=== PATIENT | female | born 1990 | race Caucasian/White ===

== ENCOUNTER 2018-07-13 14:53 | Inpatient (IN) | payer SELFPAY ==
[~2018-07-13] VITALS: Ht 157.5 cm; Wt 55.7 kg
--- NOTE | 2018-07-13 15:21 | NUR ---
First contact with pt. ED MD at bedside. Pt tearful stating, "I have been having chest pain for weeks. I went to the hospital and they didn't know what was wrong. Ativan helped it feel better there. Every three seconds it feels like a stabbing and pressure pain in my left chest, and my left arm hurts and I can't even lift my arm up. It hurts for 5 to 6 hours at a time. I was at [facility] last night, I was there last . I tried to smoke pot a couple times this week because I thought it was anxiety, but it didn't help. I have had a diagnosis of anxiety before and clonopin helped in the past when I was on it." Pt denies n/v/d, trauma, blood in urine or stool, sob, increase in frequency. Pt connected to all monitors. All safety measures in place. Call light within reach. Pt AOX4, tachy caardic in the 120-130's, RR of 19.
[2018-07-13] MEDS ORDERED: MAALOX/HYOSCYAMINE/LIDOCAINE 45 ML BTL ONE (15:28)
[2018-07-13] MEDS ORDERED: DIME25TA PO (15:33)
[2018-07-13] MEDS ORDERED: ONDANSETRON 2MG/ML, 2ML ONE (15:45)
[2018-07-13] MEDS ORDERED: FAMOTIDINE 20 MG/2 ML ONE (15:45)
--- NOTE | 2018-07-13 15:55 | NUR ---
Pt provided medication per EMAR. Pt tearful and guarding epigastric and left chest. Pt connected to all monitors and PIV fluids infusing per EMAR. All safety measures in place. Pt aware of need of urine sample. Pt states, "I need to calm [place] first before I can do that."
[2018-07-13 15:57] LABS: BASOPHILS # (AUTO) 0.07 x10^3/uL (0-0.1); BASOPHILS % (AUTO) 1 % (0-1); EOSINOPHILS # (AUTO) 0.15 x10^3/uL (0-0.4); EOSINOPHILS % (AUTO) 1 % (1-7); LYMPHOCYTES # (AUTO) 3.37 x10^3/uL (1-3.4); LYMPHOCYTES % (AUTO) 32 % (22-44); MD NO; MEAN CORPUSCULAR HEMOGLOBIN 31.4 pg (27.0-34.8); MEAN CORPUSCULAR HGB CONC 34.2 g/dL (32.4-35.8); MEAN CORPUSCULAR VOLUME 91.8 fL (80-100); MEAN PLATELET VOLUME 7.8 fL (7.4-10.4); MONOCYTES # (AUTO) 0.62 x10^3/uL (0.2-0.8); MONOCYTES % (AUTO) 6 % (2-9); NEUTROPHILS # (AUTO) 6.44 x10^3/uL (1.8-6.8); NEUTROPHILS % (AUTO) 61 % (42-75); PLATELET COUNT 325 x10^3/uL (130-400); RED BLOOD COUNT 4.96 x10^6/uL (3.82-5.3); RED CELL DISTRIBUTION WIDTH 12.2 % (9.6-15.2)
[2018-07-13] MEDS ORDERED: ONDANSETRON 2MG/ML, 2ML IVPush ONE (16:00)
[2018-07-13] MEDS ORDERED: SODIUM CHLORIDE 0.9% 1,000ML IVBOLUS ONE ×2 (16:00→18:00)
[2018-07-13] MEDS ORDERED: FAMOTIDINE 20 MG/2 ML IVP ONE (16:00)
[2018-07-13] MEDS ORDERED: MAALOX/HYOSCYAMINE/LIDOCAINE 45 ML BTL PO ONE (16:00)
[2018-07-13 16:07] LABS: ALANINE AMINOTRANSFERASE 27 U/L (12-78); ANION GAP 11 mmol/L (5-15); CALCIUM 9.5 mg/dL (8.5-10.1); CHLORIDE 107 mmol/L (98-107); CREATININE 1.01 mg/dL (0.55-1.02)
[2018-07-13 16:12] LABS: ALKALINE PHOSPHATASE 49 U/L (45-117); TOTAL PROTEIN 8.3 g/dL (6.4-8.2)
[2018-07-13] MEDS ORDERED: HYDROmorphone 1 MG/ML, 1ML ONE ×2 (16:39→18:11)
[2018-07-13] MEDS ORDERED: HYDROmorphone 1 MG/ML, 1ML IV ONE ×2 (17:00→18:30)
--- NOTE | 2018-07-13 17:15 | NUR ---
Pt ambulated to bathroom with steady gait and balance with assistance of friend. Pt provided urine sample. Pt states, "The pain medication helped alot. I can't believe I am still having this sharp stabbing pain."
--- NOTE | 2018-07-13 17:18 | NUR ---
Pt transported on [facility] to [place].
[2018-07-13] MEDS ORDERED: OMNIPAQUE 350 MG/ML, 100ML BOTTLE ONE (17:38)
[2018-07-13 17:48] LABS: MICROSCOPIC AUTO
[2018-07-13 17:53] LABS: CULTURE INDICATED? YES
--- NOTE | 2018-07-13 18:14 | NUR ---
Provided medication per EMAR and pt request due to 8/10 LUQ pain. PIV fluids infusing per EMAR. Pt requesting oral swabs for dry mouth. Pt aware of NPO status and states understanding.
--- NOTE | 2018-07-13 18:46 | NUR ---
Provided report to CAL Waldrop. All questions answered. Pt ready to transfer to floor from ED.
[2018-07-13] MEDS ORDERED: BISACODYL 10 MG SUPP PR PRN (19:00)
--- NOTE | 2018-07-13 19:02 | NUR ---
Pt transfered to floor from ED with all personal belongings.
[2018-07-13 20:43] VITALS: BP 102/66
[2018-07-13] MEDS: HEPARIN 5,000 UNITS/ML, 1ML SQ SCH (21:05)
[2018-07-13] MEDS: morphine SULFATE 10 MG/ML, 1ML IVPush PRN ×2 (21:05→22:10)
[2018-07-13] MEDS: LACTATED RINGERS 1,000 ML IV SCH (21:05)
[2018-07-13] MEDS: CEFTRIAXONE PMX 1GM/50ML 50 ML IV SCH (21:17)
[2018-07-13] MEDS: KETOROLAC 30 MG/1 ML IV PRN (23:53)
[2018-07-14] MEDS: LACTATED RINGERS 1,000 ML IV SCH (02:00)
[2018-07-14 02:12] VITALS: BP 96/58
[2018-07-14] MEDS ORDERED: LACTATED RINGERS 1,000 ML IV SCH (03:00)
[2018-07-14] MEDS: HEPARIN 5,000 UNITS/ML, 1ML SQ SCH ×3 (03:00→17:59)
[2018-07-14 05:36] LABS: MEAN CORPUSCULAR HEMOGLOBIN 31.2 pg (27.0-34.8); MEAN CORPUSCULAR HGB CONC 33.8 g/dL (32.4-35.8); MEAN CORPUSCULAR VOLUME 92.2 fL (80-100); MEAN PLATELET VOLUME 7.8 fL (7.4-10.4); PLATELET COUNT 214 x10^3/uL (130-400); RED BLOOD COUNT 3.66 x10^6/uL (3.82-5.3)
[2018-07-14 05:41] LABS: ALBUMIN 3.1 g/dL (3.4-5.0); CALCIUM 8.2 mg/dL (8.5-10.1); CHLORIDE 115 mmol/L (98-107)
[2018-07-14 05:46] LABS: ALANINE AMINOTRANSFERASE 16 U/L (12-78); ALKALINE PHOSPHATASE 31 U/L (45-117); ANION GAP 7 mmol/L (5-15); BILIRUBIN,TOTAL 0.9 mg/dL (0.2-1.0); CHOL/HDL RATIO 3.7; CHOLESTEROL, TOTAL 123 mg/dL (140-239); HDL CHOL % 27 % (28-40); HDL CHOLESTEROL (DIRECT) 33 mg/dL (40-60); LDL CHOLESTEROL,CALCULATED 76 mg/dL (54-169); LDL/HDL RATIO 2.3 (0.5-3.0); TOTAL PROTEIN 5.3 g/dL (6.4-8.2); TRIGLYCERIDES 70 mg/dL (50-200); VLDL CHOLESTEROL 14 mg/dL (0-25)
[2018-07-14] MEDS: morphine SULFATE 10 MG/ML, 1ML IVPush PRN ×2 (06:13→09:43)
[2018-07-14 06:18] LABS: BASOPHILS # (AUTO) 0.06 x10^3/uL (0-0.1); BASOPHILS % (AUTO) 1 % (0-1); EOSINOPHILS # (AUTO) 0.24 x10^3/uL (0-0.4); EOSINOPHILS % (AUTO) 4 % (1-7); LYMPHOCYTES % (AUTO) 48 % (22-44); MD SCAN; MONOCYTES # (AUTO) 0.43 x10^3/uL (0.2-0.8); MONOCYTES % (AUTO) 7 % (2-9); NEUTROPHILS # (AUTO) 2.72 x10^3/uL (1.8-6.8); NEUTROPHILS % (AUTO) 41 % (42-75)
[2018-07-14 06:50] VITALS: BP 102/66
[2018-07-14] MEDS: KETOROLAC 30 MG/1 ML IV PRN ×3 (07:24→23:05)
[2018-07-14] MEDS: D5%-0.9% NACL 1,000 ML IV SCH (08:20)
[2018-07-14 09:40] VITALS: BP 99/60
[2018-07-14] MEDS: hydrOXyzine 10 MG/5 ML ORAL SOL PO PRN ×2 (09:43→17:58)
[2018-07-14 09:49] LABS: % IRON SATURATION 76 % (20-55); IRON LEVEL 142 mcg/dL (50-170); TOTAL IRON BINDING CAPACITY 187 mcg/dL (250-450)
[2018-07-14] MEDS: ONDANSETRON 2MG/ML, 2ML IVPush PRN ×2 (11:50→21:27)
[2018-07-14] MEDS: OXYcodone/APAP 5/325MG TABLET PO PRN ×2 (11:51→21:27)
[2018-07-14 13:05] VITALS: BP 100/55
[2018-07-14 20:22] VITALS: BP 100/69
[2018-07-14] MEDS: CEFTRIAXONE PMX 1GM/50ML 50 ML IV SCH ×2 (21:27→23:05)
[2018-07-15] MEDS: D5%-0.9% NACL 1,000 ML IV SCH (01:48)
[2018-07-15] MEDS: HEPARIN 5,000 UNITS/ML, 1ML SQ SCH ×2 (02:23→11:00)
[2018-07-15 02:40] VITALS: BP 96/60
[2018-07-15 07:04] VITALS: BP 99/61
[2018-07-15] MEDS: OXYcodone/APAP 5/325MG TABLET PO PRN (09:14)
[2018-07-15] MEDS: ONDANSETRON 2MG/ML, 2ML IVPush PRN (09:14)
[2018-07-15 09:56] LABS: ALBUMIN 3.4 g/dL (3.4-5.0); ANION GAP 6 mmol/L (5-15); CALCIUM 8.4 mg/dL (8.5-10.1); CHLORIDE 108 mmol/L (98-107)
[2018-07-15 10:00] LABS: ALANINE AMINOTRANSFERASE 19 U/L (12-78); ALKALINE PHOSPHATASE 42 U/L (45-117); BILIRUBIN,TOTAL 1.5 mg/dL (0.2-1.0); CREATININE 0.73 mg/dL (0.55-1.02); TOTAL PROTEIN 6.5 g/dL (6.4-8.2)
== END 2018-07-15 12:35 | disposition home or self-care (01) | DRG 439 ==
LOC: ED 17:55 → EDIP 18:39 → 3NE 19:37 → DCLOUNGE 07-15 12:20
PROVIDERS: ADMIT Internal Medicine; ATTEND Internal Medicine
DX: K85.00 Idiopathic acute pancreatitis without necrosis or infection (principal); N39.0 Urinary tract infection, site not specified; R00.0 Tachycardia, unspecified; F12.90 Cannabis use, unspecified, uncomplicated; F17.210 Nicotine dependence, cigarettes, uncomplicated; R74.8 Abnormal levels of other serum enzymes; F41.9 Anxiety disorder, unspecified; F32.9 Major depressive disorder, single episode, unspecified; E87.6 Hypokalemia; Z86.19 Personal history of other infectious and parasitic diseases; Z87.11 Personal history of peptic ulcer disease; Z83.3 Family history of diabetes mellitus; Z82.49 Family history of ischemic heart disease and other diseases of the circulatory system
CPT/HCPCS: 36415; 99285; J3490; J7042; 71045; 74177; 80053; 80061; 81001; 83540; 83550; 83690; 83735; 84703; 85025; 87086; 93005; 96361; 96374; 96375; 96376; G0378; J0696; J1170; J1644; J1885; J2405; Q9967; J2270; J7030; J7120; Q0177

== ENCOUNTER 2018-11-27 18:28 | Emergency (ER) | payer SELFPAY ==
[~2018-11-27] VITALS: Ht 157.5 cm; Wt 54.9 kg
[~2018-11-27 18:28] MED LIST: DIME25TA PO
[2018-11-27] MEDS ORDERED: ONDANSETRON ODT 4 MG ONE (18:54)
[2018-11-27] MEDS ORDERED: HYDROmorphone 2 MG/ML, 1ML ONE (18:54)
[2018-11-27] MEDS ORDERED: HYDROmorphone 1 MG/ML, 1ML INJ IM ONE (19:00)
[2018-11-27] MEDS ORDERED: ONDANSETRON ODT 4 MG PO ONE (19:00)
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
[2018-11-27 19:13] LABS: MEAN CORPUSCULAR HGB CONC 33.1 g/dL (32.4-35.8); MEAN CORPUSCULAR VOLUME 96.6 fL (80-100); PLATELET COUNT 294 x10^3/uL (130-400); RED BLOOD COUNT 4.45 x10^6/uL (3.82-5.3); RED CELL DISTRIBUTION WIDTH 13.6 % (9.6-15.2)
[2018-11-27 19:22] LABS: ALANINE AMINOTRANSFERASE 24 U/L (12-78); ALBUMIN 4.3 g/dL (3.4-5.0); ANION GAP 7 mmol/L (5-15); CALCIUM 8.7 mg/dL (8.5-10.1); CHLORIDE 108 mmol/L (98-107); CREATININE 0.94 mg/dL (0.55-1.02)
[2018-11-27 19:24] LABS: ALKALINE PHOSPHATASE 60 U/L (45-117); BILIRUBIN,TOTAL 0.6 mg/dL (0.2-1.0); TOTAL PROTEIN 7.5 g/dL (6.4-8.2)
--- NOTE | 2018-11-27 19:40 | NUR ---
PT BACK FROM CT AND PT REQUESTING MORE PAIN MEDS. DR. EDGAR AWARE.
[2018-11-27 19:51] LABS: MD SCAN
[2018-11-27 19:52] LABS: BASOPHILS # (AUTO) 0.02 x10^3/uL (0-0.1); BASOPHILS % (AUTO) 0 % (0-1); EOSINOPHILS % (AUTO) 0 % (1-7); LYMPHOCYTES # (AUTO) 0.44 x10^3/uL (1-3.4); LYMPHOCYTES % (AUTO) 4 % (22-44); MONOCYTES # (AUTO) 0.04 x10^3/uL (0.2-0.8); MONOCYTES % (AUTO) 0 % (2-9); NEUTROPHILS # (AUTO) 11.87 x10^3/uL (1.8-6.8); NEUTROPHILS % (AUTO) 96 % (42-75)
[2018-11-27] MEDS ORDERED: OXYcodone/APAP 10/325MG TABLET ONE (19:57)
[2018-11-27] MEDS ORDERED: OXYcodone/APAP 10/325MG TABLET PO ONE (20:00)
[2018-11-27 20:07] VITALS: BP 116/72
== END 2018-11-27 20:14 | disposition home or self-care (01) ==
LOC: ED 19:15
DX: S22.32XA Fracture of one rib, left side, initial encounter for closed fracture (principal); W06.XXXA Fall from bed, initial encounter; Y93.89 Activity, other specified; Y92.410 Unspecified street and highway as the place of occurrence of the external cause; Y99.8 Other external cause status
CPT/HCPCS: 36415; 71250; 80053; 83690; 85025; 96372; 99284; J1170; Q0162

== ENCOUNTER 2019-01-26 14:33 | Emergency (ER) | payer MEDICAID ==
[~2019-01-26] VITALS: Ht 157.5 cm; Wt 55.0 kg
[2019-01-27 10:37] VITALS: BP 94/58
== END 2019-01-27 21:22 | disposition home or self-care (01) ==
LOC: ED 16:56
DX: F43.11 Post-traumatic stress disorder, acute (principal); R44.3 Hallucinations, unspecified; F17.200 Nicotine dependence, unspecified, uncomplicated
CPT/HCPCS: 36415; 80053; 80307; 84703; 85025; 96372; 99284; J1630; Q0162

== ENCOUNTER 2019-10-08 11:44 | Emergency (ER) | payer MEDICAID ==
[~2019-10-08] VITALS: Ht 157.5 cm; Wt 53.7 kg
[~2019-10-08 11:44] MED LIST changes: +AMPH30TA2 PO; +BREX0.5T PO; +LORA-445 PO
[2019-10-08 11:46] VITALS: BP 113/48
[2019-10-08] MEDS ORDERED: MORPHINE SULFATE 4 MG/ML, 1ML ONE (11:49)
[2019-10-08] MEDS ORDERED: ONDANSETRON 2MG/ML, 2ML ONE (11:49)
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
[2019-10-08] MEDS ORDERED: MORPHINE SULFATE 4 MG/ML, 1ML IVPush PRN (12:00)
[2019-10-08] MEDS ORDERED: PLEASE ENTER HEIGHT AND WEIGHT MC SCH (12:00)
[2019-10-08] MEDS ORDERED: ONDANSETRON 2MG/ML, 2ML IVPush ONE (12:00)
[2019-10-08] MEDS ORDERED: KETOROLAC 30 MG/1 ML ONE (12:10)
--- NOTE | 2019-10-08 12:19 | NUR ---
ICE PACK PROVIDED
[2019-10-08] MEDS ORDERED: KETOROLAC 30 MG/1 ML IVPush ONE (12:30)
== END 2019-10-08 13:00 | disposition home or self-care (01) ==
LOC: ED 12:50
DX: S83.91XA Sprain of unspecified site of right knee, initial encounter (principal); W19.XXXA Unspecified fall, initial encounter; Y93.89 Activity, other specified; Y92.098 Other place in other non-institutional residence as the place of occurrence of the external cause; Y99.8 Other external cause status
CPT/HCPCS: 73560; 96374; 96375; 99284; J1885; J2270; J2405